=== PATIENT | female | born 1980 | race Caucasian/White ===

== ENCOUNTER 2020-01-17 06:30 | Observation (INO) | payer SELFPAY ==
[2020-01-17] MEDS ORDERED: 0.9 % SODIUM CHLORIDE 10 ML DISP.SYRIN. IV PRN (07:15)
[2020-01-17] MEDS ORDERED: MORPHINE SULFATE 2 MG/ML VIAL. IV ONE (07:15)
== END 2020-01-17 08:39 | disposition home or self-care (01) ==
LOC: 3 SO LND 06:30
PROVIDERS: ADMIT Obstetrics & Gynecology; ATTEND Obstetrics & Gynecology
DX: O46.92 Antepartum hemorrhage, unspecified, second trimester (principal); Z3A.20 20 weeks gestation of pregnancy
CPT/HCPCS: G0378; G0379